=== PATIENT | male | born 1970 | race Caucasian/White ===

== ENCOUNTER 2017-01-29 22:47 | Emergency (ER) | payer OTHER ==
[~2017-01-29] VITALS: Ht 188 cm; Wt 102.1 kg
[2017-01-29 22:47] VITALS: BP 194/121
[2017-01-30 00:48] LABS: BASOPHILS # (AUTO) 0.2 K/uL (0.00-0.22); BASOPHILS % (AUTO) 1.8 % (0.0-2.0); EOSINOPHILS # (AUTO) 0.2 K/uL (0-0.4); HEMATOCRIT 44.5 % (36-52); HEMOGLOBIN 14.7 g/dL (12.0-18.0); LYMPHOCYTES # (AUTO) 2.2 K/uL (2.0-11.5); LYMPHOCYTES % (AUTO) 22.4 % (20.5-51.1); MEAN CORPUSCULAR HEMOGLOBIN 29 pg (27-31); MEAN CORPUSCULAR HGB CONC 33 g/dL (33-37); MEAN CORPUSCULAR VOLUME 87 fL (80-94); MONOCYTES # (AUTO) 0.5 K/uL (0.8-1.0); MONOCYTES % (AUTO) 4.7 % (1.7-9.3); NEUTROPHILS # (AUTO) 6.8 K/uL (1.8-7.7); NEUTROPHILS % (AUTO) 69.1 % (42.2-75.2); PLATELET COUNT (AUTO) 254 K/uL (140-450); RED BLOOD CELL COUNT(AUTO) 5.14 MIL/uL (4.20-6.10); RED CELL DISTRIBUTION WIDTH 12.9 % (11.6-13.7); WHITE BLOOD COUNT (AUTO) 9.9 K/uL (4.8-10.8)
[2017-01-30 00:51] LABS: ANION GAP 11.5 (8-16); CARBON DIOXIDE 28.4 mmol/L (21-32); CREATININE 0.9 mg/dL (0.7-1.3); POTASSIUM 3.9 mmol/L (3.5-5.1)
[2017-01-30 00:58] LABS: ALBUMIN 4.5 g/dL (3.4-5.0); TOTAL BILIRUBIN 0.3 mg/dL (0.0-1.0)
--- NOTE | 2017-01-30 01:30 | NUR ---
PATIENT TO ER OF3.
--- NOTE | 2017-01-30 01:45 | NUR ---
PATIENT BEING EVALUATED BY DR. PIERCE.
[2017-01-30 02:05] VITALS: BP 137/93
--- NOTE | 2017-01-30 02:05 | NUR ---
Patient discharged with v/s stable. Written and verbal after care instructions given and explained. Patient alert, oriented and verbalized understanding of instructions. Ambulatory with steady gait. All questions addressed prior to discharge. ID band removed. Patient advised to follow up with PMD. Rx of Lisinopril given. Patient educated on indication of medication including possible reaction and side effects. Opportunity to ask questions provided and answered.
== END 2017-01-30 02:05 | disposition home or self-care (01) ==
LOC: MED 22:47
DX: I10 Essential (primary) hypertension (principal); R51 Headache; R11.0 Nausea
CPT/HCPCS: 36415; 71010; 80053; 84484; 85025; 99285